=== PATIENT | male | born 1950 | race Caucasian/White ===

== ENCOUNTER 2018-01-06 10:30 | Outpatient (CLI) | payer MEDICARE, BC ==
--- NOTE | 2018-01-06 12:45 | MRI ---
MRI CERVICAL SPINE NONCONTRAST: History: Neck pain with radiculopathy. FINDINGS: Vertebral body heights and alignment are maintained. Desiccation of all of the intervertebral discs. C2-3, C3-4: Mild osteophytosis. Central canal and neural foramina are patent. C4-5: Very mild osteophytes/disc complex. Central canal and neural foramina are patent. C5-6: Disc space narrowing. Prominent posterior osteophyte/disc complex. Disc and circumferential deg enerative changes result in moderate stenosis of the central canal and mild flattening of the ventral aspect of the spinal cord. No abnormal signal within the cord. Moderate bilateral foraminal stenoses . C6-7, C7-T1: Central canal and neural foramina are patent. Minimal disc bulge at the C7-T1 level. IMPRESSION: Significant degenerative changes limited to the C5-6 level where there is central canal and foraminal stenosis. No evidence of myelomalacia. POS: [facility]
--- NOTE | 2018-01-07 12:44 | MRI ---
MRI OF THE RIGHT WRIST: Date: 01-07-18 Provided Clinical History: Right wrist pain. FINDINGS: Evaluation is limited by patient motion. The dorsal extensor and volar flexor tendons demonstrate an intact MR appearance. There is edema present throughout much of the scaphoid. There is an irregular appearance to the proxi mal pole articular cortex at the radiocarpal joint. There is subjacent subcortical cyst like change a nd probable associated sclerosis. Radiocarpal articular cartilage loss may be present. There is no li near signal alteration present within the scaphoid to suggest fracture. The scapholunate and lunar triquetral ligaments are not optimally evaluated on the basis of this stud y. Minimally irregular appearance to the DRUJ aspect of the triangular fibrocartilage disc is seen. Alignment appears anatomic. Joint spaces appear otherwise preserved. Subcortical cyst like changes ar e seen within the second and third metacarpal heads. Regional marrow signal appears otherwise unremarkable. No regional joint effusion is evident. The cou rses of the regional major intravascular structures are unremarkable. IMPRESSION: 1. Findings compatible with radiocarpal arthropathy and associated subchondral cysts and sclerosis fo rmation involving the proximal pole of the scaphoid. If the patient has sustained a prior scaphoid fr acture, the possibility of this being on the basis of partial proximal pole osteonecrosis cannot be e xcluded. 2. Minimal irregularity to the DRUJ articular surface of the triangular fibrocartilage disc. POS: [facility]
== END 2018-01-06 10:31 | disposition home or self-care (01) ==
LOC: TBSIIMAG 10:30
PROVIDERS: ATTEND Orthopaedic Surgery Hand Surgery
DX: M48.02 Spinal stenosis, cervical region (principal); M47.22 Other spondylosis with radiculopathy, cervical region; M87.039 Idiopathic aseptic necrosis of unspecified carpus; M87.9 Osteonecrosis, unspecified; M99.81 Other biomechanical lesions of cervical region; M85.621 Other cyst of bone, right upper arm
CPT/HCPCS: 72141

== ENCOUNTER 2018-05-26 10:42 | Day surgery (SDC) | payer MEDICARE, BC ==
[2018-05-26] MEDS ORDERED: Fentanyl 100 MCG/2 ML VIAL ONE ×2 (11:18→15:53)
[2018-05-26 11:19] LABS: #Basophils 0.1 thou/uL (0.0-0.2); #Eosinphils 0.1 thou/uL (0.0-0.7); #Lymphocytes 1.7 thou/uL (1.20-3.40); #Monocytes 0.5 thou/uL (0.11-0.59); %Basophils 0.9 % (0.0-1.0); %Eosinophils 1.6 % (0.0-10.0); %Lymphocytes 26.9 % (21.0-51.0); %Monocytes 7.9 % (0.0-10.0); %Neutrophils 62.6 % (42.0-75.0); Hemoglobin 15.1 g/dL (14.0-18.0); Mean Corpuscular HGB CONC 33.3 g/dL (32.0-36.0); Mean Corpuscular Hemoglobin 33.3 pg (27.0-31.0); Mean Corpuscular Volume 99.9 fL (78.0-98.0); Mean Platelet Volume 9.1 fL (7.4-10.4); Platelet Count 169 thou/uL (130-400); RBC Distribution Width 11.8 % (11.5-14.5); Red Blood Cell (RBC) Count 4.54 mill/uL (4.70-6.10); White Blood Cell (WBC) Count 6.3 thou/uL (4.8-10.8)
[2018-05-26] MEDS ORDERED: Bacitracin Zinc Ointment 30 gm TUBE ONE (11:30)
[2018-05-26 11:43] LABS: Anion Gap 15 mmol/L (10-20); BUN (Urea Nitrogen) 15 mg/dL (8.4-25.7); Calc. Creatinine Clearance 76 mL/min (70-130); Calcium 9.5 mg/dL (7.8-10.44); Carbon Dioxide 24 mmol/L (23-31); Chloride 106 mmol/L (98-107); Estimated GFR-MDRD 75; Glucose 97 mg/dL (80-115); Potassium 3.9 mmol/L (3.5-5.1); Sodium 141 mmol/L (136-145)
[2018-05-26] MEDS ORDERED: CEFAZOLIN 2 GM/50 ML BAG ONE (11:45)
[2018-05-26 12:22] LABS: Bilirubin Negative (Negative); Blood, Urine Negative (Negative); Clarity CLEAR (Clear); Glucose, Urine (Dipstick) Negative (Negative); Leukocyte Negative (Negative); Nitrite Negative (Negative); Protein, Urine (Dipstick) Negative (Neg-Trace)
[2018-05-26 12:26] LABS: Bacteria/HPF None Seen HPF (None Seen); Hyaline Casts/LPF 0-3 HYALINE CAST LPF (0-3 Hyaline); RBC/HPF 0-3 HPF (0-3); Squamous Epithelial None Seen HPF (0-3); WBC/HPF None Seen HPF (0-3)
[2018-05-26] MEDS ORDERED: Bupivacaine PF 0.5% 30 ML VIAL ONE (12:29)
[2018-05-26] MEDS ORDERED: EPINEPHrine 1 MG/ML AMP ONE (12:42)
--- NOTE | 2018-05-26 13:24 | RAD ---
2 VIEW CHEST: Date: 05/26/18 HISTORY: Preop. FINDINGS: Lungs show mild increased interstitial markings. There is evidence of a focal density in the mid righ t lung field. Underlying nodule not excluded. This should be evaluated with elective chest CT. No infiltrate or effusion. Vascular markings normal. Heart size normal. Postop sternotomy change. Aor tic calcification. Degenerative spine changes. IMPRESSION: 1. No evidence of acute process. 2. Question nodular density in right mid lung. 3. Mild increased interstitial markings. Recommend elective noncontrast chest CT. CODE T. CODE LN. POS: [facility]
--- NOTE | 2018-05-26 16:15 | RAD ---
RIGHT WRIST TWO FLUOROSCOPIC VIEWS: Technique: Two fluoroscopic views taken in OR are presented. Indication: Intraoperative imaging during surgical procedure and arthroscopy. FINDINGS: There are pins transfixing the scaphoid lunate and scaphoid capitate with small anchors transfixing t he scaphoid. Retractors are seen dorsally. IMPRESSION: Intraoperative imaging as described above. POS: [facility]
[2018-05-26] MEDS ORDERED: Ketorolac Tromethamine 30 MG/ML VIAL ONE ×2 (16:23→16:24)
[2018-05-26] MEDS ORDERED: PROPOFOL 200 MG/20 ML VIAL ONE (16:23)
[2018-05-26] MEDS ORDERED: Dexamethasone 20 MG/5 ML VIAL ONE (16:23)
[2018-05-26] MEDS ORDERED: Glycopyrrolate 0.2 MG/ML 5 ML SYRINGE ONE (16:23)
[2018-05-26] MEDS ORDERED: Lidocaine 1% PF 5 ML VIAL ONE (16:23)
[2018-05-26] MEDS ORDERED: ePHEDrine/0.9% NaCl/PF SYRINGE 50 mg/10 ml ONE (16:23)
[2018-05-26] MEDS ORDERED: Rocuronium Bromide 10 MG/ML (10ML VIAL) ONE (16:23)
[2018-05-26] MEDS ORDERED: PHENYLEPHRINE-NS 100 MCG/ML 10 ML SYRINGE ONE (16:23)
[2018-05-26] MEDS ORDERED: Ondansetron PF 4 MG/2 ML Vial ONE (16:23)
--- NOTE | 2018-05-26 23:10 | OP ---
DATE OF PROCEDURE: 05/26/2018 PREOPERATIVE DIAGNOSES: 1. Right wrist synovitis. 2. 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 POSTOPERATIVE DIAGNOSES: 1. Right wrist synovitis. 2. 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 PROCEDURES PERFORMED: 1. Open posterior interosseous nerve neurectomy. 2. Open scapholunate interosseous membrane reconstruction. 3. Open intercarpal ligament pinning. 4. Arthroscopic synovectomy of wrist. SPECIMEN REMOVED: Chondral surface, scaphoid at the scapholunate joint. FINDINGS: No TFCC tear, very diffuse synovitis. Radial side so thick, could not perform the debridement of the scaphoid or the chondral surface and the scapholunate interosseous membrane tear was next to a 1.5-cm chondral flap tear with no underlying bone consistent with what is seen on radiographs at the scapholunate articulation. TOURNIQUET TIME: 71 minutes. ESTIMATED BLOOD LOSS: 50 mL. DESCRIPTION OF PROCEDURE: After successful general endotracheal anesthesia, the limb was prepped and draped. Time-out was done appropriately. He was placed in arthroscopic arm neal, and standard 3-4, 6U and 6R portals were established. Initially, panoramic view was very difficult because there was so much synovitis on the radial side, so we can only view initially from the 6R portal. We established an accessory dorsal portal in order to visualize better, and we were able to identify through the synovitis the large chondral flap tear, but underlying to it there was no bone and no connection over the 1.5-cm central and dorsal aspect of scapholunate ligament, so we finished the synovectomy and went to open procedure. We detached the arm from the arm neal, exsanguinated the limb, inflated the tourniquet and used the 3-4 portal at the bases of the zigzag incision out to the level of the carpometacarpal joint We made a zigzag incision over the retinaculum and tagged it with 2-0 Vicryl, identified the flexor pollicis longus and spared it. We next were able to separate the fourth from the third dorsal compartment, made an L-shaped joint capsule, ligament sparing, to expose the scapholunate joint. There was no lunato-triquetrum instability seen and we did not see any TFCC tear. We then debrided the joint of the chondral flap tear, underneath this was no bone for the first 2 mm, and then after this, the dorsal 1/3 had bone underneath this area. There was a 1.5-cm scapholunate ligament tear beginning just 3 mm from the dorsal edge, so we roughened the bone surface, and used 3 anchors, one a micro and 2 minis, to pull the ligament back into the trough created with the debridement. Before we tied these anchors, we then reduced the scaphoid out to slide dorsal and this gave excellent stability. With the lunate, pinned it to scaphoid to lunate and then the scaphoid to the capitate, and then tied the sutures. Radiographs revealed excellent position of the joint, K-wires, and anchors in frontal sagittal plane. We have released the tourniquet, closed the joint capsule with a #1 Ethibond in a running fashion, [id number] sequence. We then closed the retinaculum with all tendons intact, but first made a posterior interosseous nerve neurectomy to help release pain. We removed a 2.5-cm segment of the nerve from the capsule insertion back proximally 2.5 cm. We then repaired the retinaculum with 2-0 Vicryl in a running fashion, subcutaneous was closed with a 4-0 Monocryl in a running fashion and 4-0 nylon interrupted mattress to close the skin and the remaining portals. The patient left the operating room after injecting a total of 20 mL of 0.5% Marcaine wisam-incisional with 3 mL in the joint and no evidence of anesthetic or operative complication. Job ID: [id number]
--- NOTE | 2018-05-27 16:27 | RAD ---
RADIOGRAPH RIGHT WRIST 3 VIEWS: Date: 05/26/18 Time: 1424 hours HISTORY: 67-year-old male with right wrist pain. FINDINGS: There are two K wires, both transversely oriented. The lower one obliquely overlies the proximal port ions of the scaphoid and lunate. The upper one overlies the distal pole of the scaphoid and the proxi mal aspect of the capitate. There are three tiny tendon anchors overlying the scaphoid proximal pole and waist. There is an osseous defect at the proximal pole of the scaphoid. Alignment is normal. IMPRESSION: 1. Status post pinning fixation of carpal bones. 2. Status post placement of anchor screws in carpal bone. 3. Fracture of proximal pole of scaphoid. POS: [facility]
== END 2018-05-26 17:20 | disposition home or self-care (01) ==
LOC: SDC 10:42
PROVIDERS: ATTEND Orthopaedic Surgery Hand Surgery
PROC: 0RBN4ZZ Excision of Right Wrist Joint, Percutaneous Endoscopic Approach (ICD-10-PCS; principal; 2018-05-26)
PROC: 0MQ50ZZ Repair Right Wrist Bursa and Ligament, Open Approach (ICD-10-PCS; 2018-05-26)
DX: S63.511A Sprain of carpal joint of right wrist, initial encounter (principal); S63.591A Other specified sprain of right wrist, initial encounter; M94.8X8 Other specified disorders of cartilage, other site; M25.331 Other instability, right wrist; M65.88 Other synovitis and tenosynovitis, other site; M87.837 Other osteonecrosis of right carpus; I10 Essential (primary) hypertension; E78.5 Hyperlipidemia, unspecified; E78.00 Pure hypercholesterolemia, unspecified; Z87.891 Personal history of nicotine dependence; Z79.82 Long term (current) use of aspirin; Z79.899 Other long term (current) drug therapy; Z95.1 Presence of aortocoronary bypass graft
CPT/HCPCS: 25320; 29844; 71046; 73110; 76000; 80048; 81001; 85025; 85652; 88307; 88311; C1713; 36415; J0171; J1100; J1885; J2001; J2405; J2704; J3010; S0020

== ENCOUNTER 2021-03-07 12:44 | Outpatient (CLI) | payer MEDICARE, BC | END 2021-03-07 12:45 | disposition home or self-care (01) | LOC: BICULT 12:44 | PROVIDERS: ATTEND Family Medicine | DX: Z13.6 Encounter for screening for cardiovascular disorders (principal); I71.4 Abdominal aortic aneurysm, without rupture | CPT/HCPCS: 76706 ==